=== PATIENT | male | born 1960 | race Caucasian/White ===

== ENCOUNTER 2018-02-08 01:47 | Outpatient (CLI) | payer MEDICAID, SELFPAY ==
[2018-02-09 11:28] LABS: HIV-1/2 Ag & Ab Screen Negative (NEGAT)
== END 2018-02-08 02:07 ==
PROVIDERS: PCP Family Medicine; Visit Provider Family Medicine
DX: Z20.6 Contact with and (suspected) exposure to human immunodeficiency virus [HIV] (principal); Z11.4 Encounter for screening for human immunodeficiency virus [HIV]
CPT/HCPCS: 36415; 87389

== ENCOUNTER 2020-05-25 13:29 | Emergency (ER) | payer MEDICAID, SELFPAY ==
[2020-05-25] VITALS (17 sets, daily range): BP systolic 122–135; BP diastolic 64–84; PULSE 77–86; RESP 12–23; TEMP 36.4; O2SAT 93–96
[2020-05-25] MEDS: MORPHine 10 MG/ML VIAL 2 MG IVP (13:58)
[2020-05-25] MEDS: Ondansetron 4 MG/2 ML VIAL IVP (13:59)
--- NOTE | 2020-05-25 14:00 | DI.CT_ITS ---
EXAM: CT HEAD CERVICAL SPINE WO CLINICAL HISTORY: Fall, R/O Fracture. TECHNIQUE: Imaging Protocol: Axial computed tomography images with coronal and sagittal reformatted images were created and reviewed COMPARISON: No exams were available for comparison FINDINGS: CT Head: Ventricles and Extra axial spaces: Normal in size and morphology for the patient's age. Hemorrhage: None. Cerebral parenchyma: Normal. Midline shift: None. Brainstem/Cerebellum: Normal. Calvarium: Normal. Visualized Paranasal sinuses/Mastoids: Clear. Soft Tissues: Unremarkable. CT Cervical Spine: Bones: No acute fracture or subluxation. Mild degenerative changes are seen in the cervical spine. Soft Tissues: Unremarkable. Lung Apices: Paraseptal emphysematous changes are seen in the lung apices. IMPRESSION: 1. No acute intracranial process. 2. No acute fracture or subluxation in the cervical spine. 3. Results of this exam have been verbally communicated with provider. RADIATION DOSE DELIVERED: 1,411.85mGy.cm Total DLP DATA REPOSITORY: All CT scans at this facility are submitted to the National Radiology Data Registry (NRDR) Dose Index Registry (DIR) with the [employer] (ACR). RADIATION OPTIMIZATION: All CT scans at this facility use at least one of these dose optimization te chniques: automated exposure control; mA and/or kV adjustment per patient size (includes targeted exa ms where dose is matched to clinical indication); or iterative reconstruction.
--- NOTE | 2020-05-25 14:08 | ED.GENADUL_ITS ---
Discharge Plan Disposition Patient Disposition: HOME Condition: Stable Discharge Details Clinical Impression: Ribs, multiple fractures, Fall (on) (from) other stairs and steps, initial encounter Primary Care Provider: Ken Peña ED Provider: Julia Bowling Home Meds and New Rx's Prescriptions: New lidocaine 5 % adhesive patch,medicated 1 patch topical DAILY Qty: 5 RF: 0 Continued spironolactone 100 MG tablet 100 mg PO BID Qty: 180 RF: 4 estradiol 2 MG tablet 4 mg PO DAILY Qty: 180 RF: 4 triamcinolone acetonide 15 GM cream 1 appful Topical BID PRNQty: 45 RF: 0 diphenhydramine HCl 25 MG tablet 25 - 50 mg PO q 6 h PRNQty: 50 RF: 0 cholecalciferol (vitamin D3) 400 UNIT tablet,chewable 800 unit PO RF: 0 Discharge Instructions Instructions: Rib Fracture (ED), Fall Prevention (ED) Additional Instructions: You have 3 rib fractures on the left side. Use lidocaine patch as directed once daily. Use incentive spirometer daily to help with deep breathing. Alternate ice and heat. Use pillow splint area when up and walking around. Return to the ED if you have any worsening shortness of breath, pain relief not relieved by medication. Fever productive cough or any concerns. Please take Tylenol or Ibuprofen with food every 4-6 hours as needed for pain and swelling. Follow up with primary care provider in 3-5 days. Return to ED sooner if any worsening or concerns. Increase oral fluids. Referrals: Ken Peña. [Primary Care Provider] - Medical Decision Making 59-year-old transgendered male who identifies as female presents to the ER via EMS with chief complaint of left rib pain status post fall down 3-4 stairs. Patient reports that she fell approximately 3-4 stairs did not hit her head no loss of consciousness. However the patient is slurring her speech and is obviously intoxicated. Does admit to alcohol unable to tell me the quantity. On initial exam curled up in the right side in a position. No palpable head trauma or skull fractures, no midline C-spine tenderness to palpation no crepitus no step-off. Does have some left sided rib cage tenderness with palpation. No other obvious signs of trauma. Past medical history includes alcohol, cannabis abuse bipolar 1 and gender identity disorder. At this time due to altered mental status due to intoxication head and C-spine CT ordered, x-ray with left ribs series ordered. Labs including alcohol level and UDS. FINDINGS: MEDIASTINUM: Normal. HEART: Normal. PULMONARY VASCULATURE: Normal. LUNGS: Clear. PLEURAL SPACE: No pleural effusion or pneumothorax. BONE:Normal. LEFT RIBS: There are minimally displaced fractures involving the posterolateral aspects of the left 6th, 8th, 9th and possibly 10th ribs. OTHER FINDINGS:Normal. IMPRESSION: 1. No acute pulmonary findings. 2. Fractures involving the posterolateral aspects of the 6th, 8th, 9th and possibly 10th ribs. 3. No pneumothorax or pleural effusion. EXAM: CT HEAD CERVICAL SPINE WO FINDINGS: CT Head: Ventricles and Extra axial spaces: Normal in size and morphology for the patient's age. Hemorrhage: None. Cerebral parenchyma: Normal. Midline shift: None. Brainstem/Cerebellum: Normal. Calvarium: Normal. Visualized Paranasal sinuses/Mastoids: Clear. Soft Tissues: Unremarkable. CT Cervical Spine: Bones: No acute fracture or subluxation. Mild degenerative changes are seen in the cervical spine. Soft Tissues: Unremarkable. Lung Apices: Paraseptal emphysematous changes are seen in the lung apices. IMPRESSION: 1. No acute intracranial process. 2. No acute fracture or subluxation in the cervical spine. 3. Results of this exam have been verbally communicated with provider. Labs show mild leukocytosis with white blood cell count of 18 6 4, hemoglobin 13.5, hematocrit 39.1 sodium 133, potassium 3.1 liver enzymes are slightly e levated. Ethyl alcohol level 333. Upon patient reevaluation she is much more alert and oriented, appears much more comfortable she was given ibuprofen 40 mg p.o. prior to discharge, 42-year-old p.o. potassium. Instructed on incentive spirometry by staff internist office based only and strict return instructions including to return for any worsening pain, worsening shortness of breath, productive cough or any concerns. Patient verbalized understanding. HPI General Mode of arrival: EMS . Date/Time Provider Initiated Documentation: 05/25/20 13:36 . Limitations to Documentation: altered mental status (Obviously intoxicated) . Information obtained by: patient and EMS . HPI Narrative: 59-year-old transgendered male who identifies as female presents to the ER via EMS with chief complaint of left rib pain status post fall down 3-4 stairs. Patient reports that she fell approximately 3-4 stairs did not hit her head no loss of consciousness. However the patient is slurring her speech and is obviously intoxicated. Does admit to alcohol unable to tell me the quantity. On initial exam curled up in the right side in a position. No palpable head trauma or skull fractures, no midline C-spine tenderness to palpation no crepitus no step-off. Does have some left sided rib cage tenderness with palpation. No other obvious signs of trauma. Past medical history includes alcohol, cannabis abuse bipolar 1 and gender identity disorder. Related Data Home Medications Medication Instructions Recorded Confirmed estradiol 4 mg PO DAILY #180 tab-cap 10/26/15 spironolactone 100 mg PO BID #180 tab-cap 10/26/15 diphenhydramine HCl 25 - 50 mg PO q 6 h PRN #50 tab-cap 11/19/16 triamcinolone acetonide 1 appful TOPICAL BID PRN #45 gm 11/19/16 cholecalciferol (vitamin D3) 800 unit PO tab.chew 03/03/17 lidocaine 1 patch TOPICAL DAILY #5 ea 05/25/20 Previous Rx's Medication Instructions Recorded lidocaine 1 patch TOPICAL DAILY #5 ea 05/25/20 Allergies Allergy/AdvReac Type Severity Reaction Status Date / Time No Known Allergies Allergy Unverified 05/25/20 13:35 General Stated Complaint: Trauma ARASH: 3 Review of Systems Unobtainable due to mental condition (Obviously intoxicated) Constitutional Constitutional: Reports as per HPI and Denies headache(s) ENT Ears, Nose, Mouth, and Throat: Denies headache(s) and Denies neck pain Cardiovascular Cardiovascular: Denies chest pain Comments: Denies chest pain Respiratory Respiratory: Denies hemoptysis, Reports pain on inspiration and Denies wheezing Comments: Reports pain with deep breathing Gastrointestinal Comments: No abdominal pain no nausea no vomiting Musculoskeletal Musculoskeletal: Reports as per HPI, Reports back pain, Denies deformity, Denies loss of height and Denies neck pain Neurologic Neurologic: Denies headache(s) Allergic/Immunologic Allergic/Immunologic: Denies wheezing [facility] Medical History Alcohol abuse Bipolar 1 disorder questionable Gender identity disorder Tobacco abuse Surgical History condyloma, laser LN for condyloma Repair of inguinal hernia 10/29/09; LEFT Family History Mother Neoplasm LUNG Father Heart disease Sister No problems noted. Brother No problems noted. Brother No problems noted. Son No problems noted. Social History Smoking/Tobacco Use Status: Current every day Smoking risk assessment performed?: Yes Alcohol Intake: current Alcohol Intake frequency: 3 or more drinks per day Do you feel safe at home: Yes Do you feel safe in your relationship?: Yes Exam Narrative Exam Narrative: Constitutional: Alert and oriented x2. Appears stated age. Normal body habitus. Head: Normocephalic, no obvious signs of trauma, no skull fractures no abrasions no lacerations. Eyes: Pupils PERRLA, 3 mm bilaterally and sluggish to light, Red reflex noted, EOM's intact. Eyelids symmetrical without lesions, discharge, or swelling. ENT: Bilateral TM's WNL, External ear normal to inspection, no mastoid TTP, swelling, or erythema, Nasal turbinates WNL, no nasal discharge. Normal dentition, Posterior pharynx WNL, no exudate. Chest: RRR, Normal S1, S2, distal pulses intact. Resp: Lungs clear to auscultation bilaterally, no wheezes, rales, or rhonchi. Musculoskeletal: Unable to assess gait, pelvis is stable, 5/5 strength to all four extremities. Moving all 4 extremities, does have some tenderness with palpation to the lateral posterior rib cage. Skin: Superficial abrasion noted to her left forearm, appears old no active bleeding, capillary refill less than 2 sec. Neurologic: Slurred speech appears obviously intoxicated, cranial nerves II-XII intact. Alert and oriented x 2. Hematologic/Lymphatic: No ecchymosis, no lymphadenopathy. Course Vital Signs Vital signs: Vital Signs Temperature 36.4 C L 05/25/20 13:32 Pulse 79 05/25/20 13:32 Respiratory Rate 18 05/25/20 13:32 Blood Pressure 131/64 05/25/20 13:32 Pulse Oximetry 93 05/25/20 13:32 Temperature 36.4 C L 05/25/20 13:32 Temperature Source Skin 05/25/20 13:32 Pulse 79 05/25/20 13:32 Respiratory Rate 18 05/25/20 13:32 Respiratory Effort Non-Labored 05/25/20 13:34 Blood Pressure 131/64 05/25/20 13:32 Blood Pressure Position Supine 05/25/20 13:32 Pulse Oximetry 93 05/25/20 13:32 Oxygen Delivery Method Room Air 05/25/20 13:32 Oxygen Flow Rate 0 05/25/20 13:32 Pain Level 9 05/25/20 13:32
[2020-05-25 14:13] LABS: Abs Immature Grans 0.11 10^3/uL (0.0-0.06); Absolute Eosinophil Count 0.22 10^3/uL (0.0-0.7); Absolute Lymphocyte Count 5.01 10^3/uL (1.2-3.4); Absolute Monocyte Count 1.42 10^3/uL (0.1-0.8); Basophils % 0.3; Eosinophils % 1.2; HCT 39.1 % (40.0-50.0); HGB 13.5 g/dL (13.5-17.5); Immature Grans % 0.6; Lymphocytes % 26.9; MCH 35.6 pg (27.0-33.0); MCHC 34.5 % (32.0-36.0); MCV 103.2 fL (80-95); Monocytes % 7.6; Neutrophils % 63.4; Nucleated RBC 0 %; Platelet Count 240 10^3/uL (130-400); RBC 3.79 10^6/uL (4.36-5.78); RDW 12.5 % (11.8-14.1); RDW-SD 47.3 fL; WBC 18.64 10^3/uL (4.4-10.8)
[2020-05-25 14:14] LABS: ALT 77 U/L (16-63); AST 77 U/L (15-37); Albumin 4.1 g/dL (3.4-5.0); Alkaline Phosphatase 62 U/L (46-116); Anion Gap 15.8 mmol/L (3-11); BUN 6 mg/dL (7-18); Bilirubin, Total 0.3 mg/dL (0.2-1.0); CO2 22.2 mmol/L (21.0-32.0); CREATININE 0.8 mg/dL (0.70-1.30); Calcium 8.9 mg/dL (8.5-10.1); Chloride 95 mmol/L (98-107); ETHANOL BLOOD 333.6 mg/dL (<3); Glucose 99 mg/dL (74-106); Potassium 3.1 mmol/L (3.5-5.1); Sodium 133 mmol/L (136-145); Total Protein 7.7 g/dL (6.4-8.2)
[2020-05-25 14:19] LABS: Absolute Basophil Count 0.06 10^3/uL (0.0-0.2); Absolute Neutrophil Count 11.82 10^3/uL (1.2-6.7)
[2020-05-25 14:32] LABS: Diff Comment Diff Reviewed; Macrocytosis 1+
--- NOTE | 2020-05-25 15:06 | DI.RAD_ITS ---
EXAM: XR RIBS LT W PA LAT CHEST CLINICAL HISTORY: Fall Down stairs, Left rib pain TECHNIQUE: 2D digital imaging was performed. COMPARISON: CR LEFT RIBS TO INCLUDE CXR from 10/14/2013 FINDINGS: MEDIASTINUM: Normal. HEART: Normal. PULMONARY VASCULATURE: Normal. LUNGS: Clear. PLEURAL SPACE: No pleural effusion or pneumothorax. BONE:Normal. LEFT RIBS: There are minimally displaced fractures involving the posterolateral aspects of the left 6 th, 8th, 9th and possibly 10th ribs. OTHER FINDINGS:Normal. IMPRESSION: 1. No acute pulmonary findings. 2. Fractures involving the posterolateral aspects of the 6th, 8th, 9th and possibly 10th ribs. 3. No pneumothorax or pleural effusion. DATA REPOSITORY: RADIATION DOSE DELIVERED:
[2020-05-25] MEDS: Lidocaine 5% Patch 1 PATCH TP (15:29)
[2020-05-25] MEDS: Ibuprofen 400 MG TAB PO (15:50)
[2020-05-25] MEDS: Potassium Chloride 20 MEQ TABCR 40 MEQ PO (15:51)
== END 2020-05-25 16:41 | disposition home or self-care (01) ==
PROVIDERS: Emergency Provider Registered Nurse Emergency; PCP Family Medicine
DX: S22.42XA Multiple fractures of ribs, left side, initial encounter for closed fracture (principal); W10.8XXA Fall (on) (from) other stairs and steps, initial encounter; F10.120 Alcohol abuse with intoxication, uncomplicated; Y90.8 Blood alcohol level of 240 mg/100 ml or more
CPT/HCPCS: 80053; 80307; 96374; 99284; 70450; 71046; 71100; 72125; 80320; 85025; 99283; J2270; J2405

== ENCOUNTER 2020-06-06 16:02 | Outpatient (REF) | payer MEDICAID, SELFPAY ==
[2020-06-06 22:19] LABS: Abs Immature Grans 0.06 10^3/uL (0.0-0.06); Absolute Basophil Count 0.08 10^3/uL (0.0-0.2); Absolute Lymphocyte Count 1.44 10^3/uL (1.2-3.4); Absolute Monocyte Count 1.06 10^3/uL (0.1-0.8); Basophils % 0.6; Eosinophils % 3.8; HCT 37.5 % (40.0-50.0); HGB 12.8 g/dL (13.5-17.5); Immature Grans % 0.5; Lymphocytes % 10.8; MCH 35.3 pg (27.0-33.0); MCHC 34.1 % (32.0-36.0); MCV 103.3 fL (80-95); MPV 9.8 fL (8.0-11.0); Neutrophils % 76.3; Nucleated RBC 0 %; RBC 3.63 10^6/uL (4.36-5.78); RDW 12.7 % (11.8-14.1); RDW-SD 47.8 fL; WBC 13.31 10^3/uL (4.4-10.8)
[2020-06-06 22:22] LABS: Absolute Eosinophil Count 0.51 10^3/uL (0.0-0.7); Absolute Neutrophil Count 10.16 10^3/uL (1.2-6.7); Platelet Count 519 10^3/uL (130-400)
== END 2020-06-06 16:03 | disposition home or self-care (01) ==
LOC: NCHCN 16:02
PROVIDERS: Visit Provider Physician Assistant
DX: D72.829 Elevated white blood cell count, unspecified (principal)
CPT/HCPCS: 85025

== ENCOUNTER 2022-09-02 02:46 | Outpatient (CLI) | payer MEDICAID, SELFPAY ==
--- NOTE | 2022-09-02 08:00 | DI.US_ITS ---
Exam(s) US AAA SCREENING EXAM: US AAA SCREENING testing 1 2 CLINICAL HISTORY: Current smoker,SCREENING FOR AAA,Z13.6 COMPARISON: No exams were available for comparison FINDINGS: Maximum diameter abdominal aorta is 0.7 cm, proximally. The aorta tapers normally. Visualized commo n iliac arteries measure less than 1 cm. IMPRESSION: No evidence of abdominal aortic aneurysm. DATA REPOSITORY:
== END 2022-09-02 03:06 ==
LOC: DI 02:46
PROVIDERS: PCP Nurse Practitioner Family; Visit Provider Nurse Practitioner Family
DX: Z13.6 Encounter for screening for cardiovascular disorders (principal); F17.210 Nicotine dependence, cigarettes, uncomplicated
CPT/HCPCS: 76706

== ENCOUNTER 2022-09-23 16:06 | Outpatient (REF) | payer MEDICAID, SELFPAY ==
[2022-09-23 22:43] LABS: Hemoglobin A1C 5.7 % (<5.7)
[2022-09-23 22:56] LABS: ALT 14 U/L (16-63); AST 15 U/L (15-37); Albumin 3.4 g/dL (3.4-5.0); Alkaline Phosphatase 55 U/L (46-116); Anion Gap 11.3 mmol/L (3-11); BUN 6 mg/dL (7-18); Bilirubin, Total 0.3 mg/dL (0.2-1.0); CO2 25.7 mmol/L (21.0-32.0); CREATININE 0.7 mg/dL (0.70-1.30); Calculated LDL 109 mg/dL (<100); Chloride 105 mmol/L (98-107); Cholesterol 201 mg/dL (<200); Estimated GFR 105.49 (mL/min/1.73m2); Glucose 95 mg/dL (74-106); HDL Cholesterol 54 mg/dL (40-60); Sodium 142 mmol/L (136-145); Total Protein 6.5 g/dL (6.4-8.2); Triglyceride 193 mg/dL (<150)
[2022-09-24 19:14] LABS: PSA, Screening 0.4 ng/mL (<=4.5)
[2022-09-25 10:09] LABS: HIV-1/2 Ag & Ab Screen Negative (Negative)
[2022-09-25 13:15] LABS: Hepatitis C Ab w Rflx HCV PCR Negative (Negative)
== END 2022-09-23 16:07 | disposition home or self-care (01) ==
LOC: LBN 16:06
PROVIDERS: PCP Nurse Practitioner Family; Visit Provider Nurse Practitioner Family
DX: Z11.59 Encounter for screening for other viral diseases; Z13.220 Encounter for screening for lipoid disorders; Z13.1 Encounter for screening for diabetes mellitus; Z12.5 Encounter for screening for malignant neoplasm of prostate; Z11.4 Encounter for screening for human immunodeficiency virus [HIV]
CPT/HCPCS: 80053; 80061; 84153; 86803; 87389; 83036

== ENCOUNTER → 2023-09-16 02:00 | Outpatient (CLI) | payer MEDICAID, SELFPAY ==
--- NOTE | 2023-09-16 07:15 | DI.CTLCSR_ITS ---
Exam(s) CT CHEST LUNG CANCER SCREEN EXAM: CT CHEST LUNG CANCER SCREEN CLINICAL HISTORY: Screening for lung cancer,current smoker, f17.210. TECHNIQUE: Imaging Protocol: Low Dose Technique CONTRAST MATERIAL: None COMPARISON: CR LEFT RIBS TO INCLUDE CXR from 10/14/2013 CR XR RIBS LT W PA LAT CHEST from 05/25/2020 FINDINGS: CHEST: LUNGS: There is peripherally located subpleural infiltrate in the superior segment of the right lower lobe. No associated pleural effusion. There are no discrete significant pulmonary nodules in eithe r lung field. No significant focal findings in the trachea and mainstem bronchi. MEDIASTINUM: There is no obvious hilar nor mediastinal adenopathy. CARDIAC: Heart size is normal. There is no pericardial effusion.Caliber of the thoracic aorta is wit hin normal limits. OTHER: No obvious adrenal masses. OSSEOUS: No significant osseous lesions.There is a healed fracture of the posterolateral aspect of th e left 7th rib. There is a non healed fracture of the posterolateral left 8th rib. There is a non h ealed fracture of the posterolateral left 9th rib. There is a non healed displaced fracture of the p osterolateral left 10th rib. Left 11th rib also exhibits non healed posterior lateral fracture. Lef t 12th rib appears intact. There are no transverse process fractures. No fractures in the opposite- right rib cage. No pneumothorax.. IMPRESSION: 1. No ominous pulmonary nodules. But there is some infiltrate noted in the superior segment of the r ight lower lobe. No pleural effusion. 2. Multiple non healed left-sided rib fractures involving left ribs 8 through 11, inclusive. The lef t 7th rib fracture is healed. There is no pneumothorax nor pleural effusion. 3. Lung RADS Cat 3 - Probably Benign: Probably benign finding(s) -right-sided infiltrate as described above. Short term follow-up suggested; include nodules with a low likelihood of becoming a clinical ly active cancer. Lung-RADS 1.0 CATEGORIES: Category 0 - Prior chest CT exam(s) being located for comparison. Category 1 - Annual screening in 12 months. No nodules or definitely benign nodules. Category 2 - Annual screening in 12 months. Benign appearance. Nodules with low likelihood of becomin g active cancer. Category 3 - 6-month follow-up. Probably benign. Short-term follow-up suggested. Nodules with low lik elihood of becoming active cancer. Category 4A - 3-month follow-up and CT/PET if >8 mm in size. Suspicious finding. Findings which requi re additional testing. Category 4B - Findings which require additional testing and tissue sampling. Category 4X - Category 3 or 4 nodules with additional features or imaging findings that increases the suspicion of malignancy. Modifier S- Potentially clinically significant findings (non lung cancer) RADIATION DOSE DELIVERED: Total DLP DATA REPOSITORY: All CT scans at this facility are submitted to the National Radiology Data Registry (NRDR) Dose Index Registry (DIR) with the [employer] (ACR). RADIATION OPTIMIZATION: All CT scans at this facility use at least one of these dose optimization te chniques: automated exposure control; mA and/or kV adjustment per patient size (includes targeted exa ms where dose is matched to clinical indication); or iterative reconstruction.
== END ==
PROVIDERS: PCP Nurse Practitioner Family; Visit Provider Nurse Practitioner Family
DX: F17.210 Nicotine dependence, cigarettes, uncomplicated (principal); S22.42XG Multiple fractures of ribs, left side, subsequent encounter for fracture with delayed healing
CPT/HCPCS: 71271

== ENCOUNTER 2023-12-15 02:19 | Outpatient (CLI) | payer MEDICAID, SELFPAY ==
[2023-12-15 12:46] LABS: ALT 34 U/L (16-63); AST 31 U/L (15-37); Albumin 4.3 g/dL (3.4-5.0); Alkaline Phosphatase 71 U/L (46-116); Anion Gap 10.8 mmol/L (3-11); BUN 9 mg/dL (7-18); Bilirubin, Total 0.64 mg/dL (0.2-1.0); CO2 28.2 mmol/L (21.0-32.0); Calcium 9.5 mg/dL (8.5-10.1); Calculated LDL 52 mg/dL (<100); Chloride 103 mmol/L (98-107); Cholesterol 160 mg/dL (<200); Estimated GFR 85.63 (mL/min/1.73m2); Glucose 106 mg/dL (74-106); HDL Cholesterol 97 mg/dL (40-60); Sodium 142 mmol/L (136-145); Total Protein 8.4 g/dL (6.4-8.2); Triglyceride 57 mg/dL (<150)
== END 2023-12-15 02:20 | disposition home or self-care (01) ==
LOC: LOS 02:19
PROVIDERS: PCP Nurse Practitioner Family; Visit Provider Nurse Practitioner Family
DX: E78.5 Hyperlipidemia, unspecified (principal)
CPT/HCPCS: 36415; 80053; 80061

== ENCOUNTER 2024-09-22 01:43 | Outpatient (CLI) | payer MEDICAID, SELFPAY ==
--- NOTE | 2024-09-22 06:30 | DI.CTLCSR_ITS ---
Exam(s) CT CHEST LUNG CANCER SCREEN EXAM: CT CHEST LUNG CANCER SCREEN CLINICAL HISTORY: Screening for lung ,cigarette smoker, F17.210 TECHNIQUE: Imaging Protocol: Axial computed tomography images with coronal and sagittal reformatted images were created and reviewed. Low dose screening protocol. COMPARISON: CT CT CHEST LUNG CANCER SCREEN from 09/16/2023 FINDINGS: Tracheobronchial tree: No bronchiectasis or mucus plugging. Mediastinum and Yolande: No dominant adenopathy or fluid collection. Pulmonary parenchyma: No consolidation or dominant measurable mass. Mild emphysematous changes, greatest at the right lung apex.. Mild chronic interstitial changes posterior superior segment of the right lower lobe.. Lung Nodules: None. Pleura: No effusion. No pneumothorax. Heart: The heart is not dilated. Mild coronary artery calcifications are seen. No pericardial effusion. Aorta: Thoracic aorta non-dilated. Upper abdomen: Unremark moderate hepatic steatosis. Bones: Unremarkable for age. Soft Tissues: Bilateral gynecomastia. IMPRESSION: No suspicious pulmonary nodules. Lung RADS Cat 1 - Negative: No nodules and definitely benign nodules Lung-RADS 1.0 CATEGORIES: Category 0 - Prior chest CT exam(s) being located for comparison. Category 1 - Annual screening in 12 months. No nodules or definitely benign nodules. Category 2 - Annual screening in 12 months. Benign appearance. Nodules with low likelihood of becoming active cancer. Category 3 - 6-month follow-up. Probably benign. Short-term follow-up suggested. Nodules with low likelihood of becoming active cancer. Category 4A - 3-month follow-up and CT/PET if >8 mm in size. Suspicious finding. Findings which require additional testing. Category 4B - Findings which require additional testing and tissue sampling. Category 4X - Category 3 or 4 nodules with additional features or imaging findings that increases the suspicion of malignancy. Modifier S- Potentially clinically significant findings (non lung cancer) RADIATION DOSE DELIVERED: 32.01mGy.cm Total DLP DATA REPOSITORY: All CT scans at this facility are submitted to the National Radiology Data Registry (NRDR) Dose Index Registry (DIR) with the [employer] (ACR). RADIATION OPTIMIZATION: All CT scans at this facility use at least one of these dose optimization techniques: automated exposure control; mA and/or kV adjustment per patient size (includes targeted exams where dose is matched to clinical indication); or iterative reconstruction.
== END 2024-09-22 02:03 ==
LOC: DI 01:43
PROVIDERS: PCP Nurse Practitioner Family; Visit Provider Nurse Practitioner Family
DX: F17.210 Nicotine dependence, cigarettes, uncomplicated (principal); Z12.2 Encounter for screening for malignant neoplasm of respiratory organs
CPT/HCPCS: 71271